=== PATIENT | female | born 1990 | race African-American/Black ===

== ENCOUNTER 2019-11-02 17:56 | Emergency (ER) | payer OTHER ==
[2019-11-02] MEDS ORDERED: ONDANSETRON HCL INJ/PF 4 MG/2 ML SDV IV ONE (18:16)
--- NOTE | 2019-11-02 18:18 | ER Document Report ---
ED Medical Screen (RME) - General Chief Complaint: Vomiting Stated Complaint: WEAKNESS,VOMITING Time Seen by Provider: 11/02/19 18:14 - HPI Notes: 11/02/19 18:17 Patient is a 29-year-old female with no significant past medical history, currently on her menstrual cycle, who presents complaining of nausea and vomiting with lower pelvic pain which is not uncommon when she is on her cycle, but she did have a syncopal episode in the bathroom. She did not hit her head or lose conscious otherwise. Denies drug allergies. No fever, chest pain, shortness of breath, headache. I have treated and performed a rapid initial assessment of this patient. A comprehensive ED assessment and evaluation of the patient, analysis of test results and completion of medical decision making process will be conducted by additional ED providers. PHYSICAL EXAMINATION: GENERAL: Well-appearing, well-nourished and in no acute distress. A&Ox4. Answers questions appropriately. Abdomen: Limited exam, mild tenderness lower pelvic area. Neuro: Cranial nerves grossly intact. - Related Data Allergies/Adverse Reactions: No Known Allergies Allergy (Verified 11/02/19 18:13) Physical Exam - Vital signs Vitals: Temp Pulse Resp BP Pulse Ox 97.5 F 55 L 18 125/84 98 11/02/19 18:01 11/02/19 18:01 11/02/19 18:01 11/02/19 18:01 11/02/19 18:01 Course - Vital Signs Vital signs: Temp Pulse Resp BP Pulse Ox 97.5 F 55 L 18 125/84 98 11/02/19 18:01 11/02/19 18:01 11/02/19 18:01 11/02/19 18:01 11/02/19 18:01
--- NOTE | 2019-11-02 19:47 | ER Document Report ---
Entered by JOY STANLEY SCRIBE 11/02/19 1926 Acting as scribe for:JASMIN COURTNEY MD ED GI/ - General Chief Complaint: Abdominal Pain Stated Complaint: WEAKNESS,VOMITING Time Seen by Provider: 11/02/19 18:14 Mode of Arrival: Ambulatory Information source: Patient Notes: This 29 year old female with no significant past medical history presents to the ED today with complaints of lower abdominal pain, nausea, and vomiting that began prior to arrival. Patient states that she started her menstrual cycle today and she experiences these symptoms with every cycle; however, she had a syncopal episode after vomiting in the bathroom. Patient denies any head injury or loss of consciousness. Patient states that she is not nauseous at this time, but she feels weak. - Related Data Allergies/Adverse Reactions: No Known Allergies Allergy (Verified 11/02/19 18:13) Past Medical History - General Information source: Patient - Social History Smoking Status: Never Smoker Cigarette use (# per day): No Chew tobacco use (# tins/day): No Smoking Education Provided: No Frequency of alcohol use: None Drug Abuse: None Family History: Reviewed & Not Pertinent Patient has suicidal ideation: No Patient has homicidal ideation: No Past Surgical History: Reports: None Review of Systems - Review of Systems Constitutional: No symptoms reported EENT: No symptoms reported Cardiovascular: No symptoms reported Respiratory: No symptoms reported Gastrointestinal: See HPI, Abdominal pain, Nausea, Vomiting Genitourinary: No symptoms reported Female Genitourinary: See HPI, Last menstrual period - started [place]ORTER Musculoskeletal: No symptoms reported Skin: No symptoms reported Hematologic/Lymphatic: No symptoms reported Neurological/Psychological: See HPI, Weakness. denies: Lost consciousness -: Yes All other systems reviewed and negative Physical Exam - Vital signs Vitals: Temp Pulse Resp BP Pulse Ox 97.5 F 55 L 18 125/84 98 11/02/19 18:01 11/02/19 18:01 11/02/19 18:01 11/02/19 18:01 11/02/19 18:01 Interpretation: Normal - General General appearance: Alert In distress: None - HEENT Head: Normocephalic, Atraumatic Eyes: Normal Pupils: PERRL - Respiratory Respiratory status: No respiratory distress Chest status: Nontender Breath sounds: Normal Chest palpation: Normal - Cardiovascular Rhythm: Regular Heart sounds: Normal auscultation Murmur: No - Abdominal Inspection: Normal Distension: No distension Bowel sounds: Normal Tenderness: Nontender - Abdomen soft Organomegaly: No organomegaly - Back Back: Normal, Nontender - Extremities General upper extremity: Normal inspection General lower extremity: Normal inspection - Neurological Neuro grossly intact: Yes - Psychological Associated symptoms: Normal affect, Normal mood - Skin Skin Temperature: Warm Skin Moisture: Dry Skin Color: Normal Course - Re-evaluation Re-evalutation: 11/02/19 21:09 Patient reports that she does not have any nausea at this time. She states she is hungry. - Vital Signs Vital signs: Temp Pulse Resp BP Pulse Ox 97.5 F 56 L 19 116/3 L 100 11/02/19 18:01 11/02/19 20:41 11/02/19 20:37 11/02/19 20:41 11/02/19 20:37 - Laboratory Result Diagrams: 11/02/19 20:08 11/02/19 20:08 Laboratory results interpreted by me: 11/02/19 11/02/19 11/02/19 20:08 20:08 20:08 MCV 79 L MCH 26.4 L RDW 14.9 H Lymph % (Auto) 12.5 L Seg Neutrophils % 81.5 H Total Protein 8.6 H Urine Urobilinogen 2.0 H Urine Ascorbic Acid 20 H - EKG Interpretation by Al EKG shows normal: Sinus rhythm, [place], Intervals, QRS Complexes, ST-T Waves Rate: Normal - 56 Rhythm: NSR Discharge - Discharge Clinical Impression: Menstrual cramps, Syncope and collapse Nausea and vomiting Qualifiers: Vomiting type: unspecified Vomiting Intractability: non-intractable Qualified Code(s): R11.2 - Nausea with vomiting, unspecified Condition: Stable Disposition: HOME, SELF-CARE Additional Instructions: Nausea or Vomiting, Nonspecific: Vomiting (or nausea without vomiting) can be caused by many different problems. Of course, it can mean that something's wrong with the stomach, such as "stomach flu," ulcers, or inflammation. But it can also be a symptom of a problem that has nothing to do with the stomach or intestines. Vomiting is common with severe headaches, earaches, and tonsillitis. We see it with pneumonia or heart attacks. Drugs can cause nausea. Many abdominal problems cause vomiting; for example, gallstones, kidney stones, pancreatitis, and intestinal obstruction (blocked bowels). In most cases, curing the vomiting depends on fixing the problem that caused it. For temporary relief, we may use an anti-nausea medicine. For home use, we can prescribe suppositories, chewable pills, pills that dissolve in the mouth, or liquid anti-nausea drugs. If the vomiting seems to be caused by a problem in the stomach, acid-suppressing drugs may be prescribed as well. It's important to avoid dehydration. Sip clear liquids. Take increasing amounts of fluid over the first 24 hours. Then start small amounts of bland foods (such as dry toast, applesauce, mashed potato). Avoid aspirin, tobacco, and alcohol. Gradually resume your usual diet. If the vomiting worsens, if the problem that's making you vomit worsens, or if there's evidence of bleeding in the stomach (such as black, tarry stool, bloody or black vomit, or lightheadedness), you should return immediately. Call your doctor if you aren't improved in 24 to 36 hours. Syncopal Episode: Syncope (fainting or near-fainting) can occur from many different health problems. Or it can be a simple fainting spell requiring no treatment. It is safe for you to go home, but further evaluation will likely be necessary. Your work-up may include tests for internal bleeding, heart disease, medication problems, or near-strokes. Tests are not always required, however, depending on the nature of your problem. The warning signs of an impending faint include: dizziness, lightheadedness, nausea, hot flashes, tingling, and weakness. If this happens, lay down and put your feet up, then wait until all of these symptoms have passed before standing up again. If these episodes become recurrent, or if you develop chest pain, heart palpitations, mental confusion, blurred vision, or headache, then you should call the physician, or go to the emergency room. Take the Zofran as dispensed for nausea if needed. Take ibuprofen or Aleve for your menstrual cramps. Drink plenty of fluids this evening. Follow-up with a local medical doctor if not improving. RETURN TO THE EMERGENCY ROOM IF ANY NEW OR WORSENING SYMPTOMS. Scribe Attestation: 11/02/19 21:09 I personally performed the services described in the documentation, reviewed and edited the documentation which was dictated to the scribe in my presence, and it accurately records my words and actions. I personally performed the services described in the documentation, reviewed and edited the documentation which was dictated to the scribe in my presence, and it accurately records my words and actions.
[2019-11-02] MEDS: NORMAL SALINE 1000 ML 1,000 ML IV PRN ×2 (20:18→20:51)
[2019-11-02 20:22] LABS: ABSOLUTE MONOCYTES (AUTO) 0.4 10^3/uL (0.1-1.4); ABSOLUTE NEUT (AUTO) 6.4 10^3/uL (1.7-8.2); BASOPHILS % (AUTO) 0.4 % (0-2); EOSINOPHILS % (AUTO) 0.2 % (0-6); HEMATOCRIT 41.1 % (36.0-47.0); HEMOGLOBIN 13.8 g/dL (12.0-15.5); LYMPHOCYTES % (AUTO) 12.5 % (13-45); MEAN CORPUSCULAR HEMOGLOBIN 26.4 pg (27.0-33.4); MEAN CORPUSCULAR HGB CONC 33.5 g/dL (32.0-36.0); MEAN CORPUSCULAR VOLUME 79 fl (80-97); MONOCYTES % (AUTO) 5.4 % (3-13); PLATELET COUNT 227 10^3/uL (150-450); RED BLOOD COUNT 5.21 10^6/uL (3.72-5.28); RED CELL DISTRIBUTION WIDTH 14.9 % (11.5-14.0); SEGMENTED NEUTROPHILS % (AUTO) 81.5 % (42-78); TOTAL CELLS COUNTED % (AUTO) 100 %; WHITE BLOOD COUNT 7.9 10^3/uL (4.0-10.5)
[2019-11-02 20:27] LABS: APPEARANCE,URINE CLEAR; BILIRUBIN,URINE NEGATIVE (NEGATIVE); COLOR,URINE YELLOW; GLUCOSE, URINE NEGATIVE (NEGATIVE); KETONES,URINE NEGATIVE (NEGATIVE); PROTEIN,URINE NEGATIVE (NEGATIVE); URINE SPECIFIC GRAVITY 1.021
[2019-11-02 20:42] LABS: ALBUMIN 4.8 g/dL (3.5-5.0); ALKALINE PHOSPHATASE 53 U/L (38-126); ANION GAP 10 (5-19); ASPARTATE AMINO TRANSFERASE 27 U/L (14-36); BILIRUBIN,DIRECT 0.2 mg/dL (0.0-0.4); BILIRUBIN,TOTAL 0.4 mg/dL (0.2-1.3); BLOOD UREA NITROGEN 11 mg/dL (7-20); CALCIUM 9.9 mg/dL (8.4-10.2); CARBON DIOXIDE 27 mmol/L (22-30); CHLORIDE 103 mmol/L (98-107); GLUCOSE 99 mg/dL (75-110); POTASSIUM 4.1 mmol/L (3.6-5.0); TOTAL PROTEIN 8.6 g/dL (6.3-8.2)
[2019-11-02] MEDS ORDERED: KETOROLAC TROMETHAMINE INJ/PF 30 MG/1 ML SDV IV ONE (20:45)
[2019-11-02] MEDS ORDERED: ONDANSETRON ODT 4 MG TAB (6 TAB/ER DISP) PO PRN (21:36)
[2019-11-02 22:06] VITALS: BP 124/83
--- NOTE | 2019-11-03 00:54 | EKG REPORT ---
SEVERITY:- NORMAL ECG - SINUS RHYTHM : Confirmed by: Taryn Hines MD 03-Nov-2019 00:53:19
== END 2019-11-02 22:05 | disposition home or self-care (01) ==
LOC: ER 17:56
DX: N94.6 Dysmenorrhea, unspecified (principal); R10.30 Lower abdominal pain, unspecified; R11.2 Nausea with vomiting, unspecified; R55 Syncope and collapse; R53.1 Weakness
CPT/HCPCS: 93005; 99284; 96361; 96374; 36415; 83690; 83735; 85025; 81025; 80053; 81001; 93010; J1885; J7030